=== PATIENT | female | born 1995 | race Two or more races ===

== ENCOUNTER 2017-07-20 17:15 | Emergency (ER) | payer SELFPAY | END 2017-07-20 17:59 | disposition short-term general hospital (02) | LOC: ER 17:15 | DX: S21.219A Laceration without foreign body of unspecified back wall of thorax without penetration into thoracic cavity, initial encounter (principal); R20.2 Paresthesia of skin; W26.9XXA Contact with unspecified sharp object(s), initial encounter; Y93.89 Activity, other specified; Y92.89 Other specified places as the place of occurrence of the external cause; Y99.8 Other external cause status | CPT/HCPCS: 71045; 99285 ==